=== PATIENT | female | born 1980 | race Hispanic/Latino ===

== ENCOUNTER 2024-05-28 19:05 | Emergency (ER) | payer BC ==
[~2024-05-28] VITALS: Ht 157.5 cm; Wt 71.2 kg
[2024-05-28 20:12] VITALS: PULSE 73; RESP 18
[2024-05-28] MEDS: IPRATROPIUM/ALBUTEROL SULFATE 3 ML SOLUTION IH ONE (20:12)
[2024-05-28] MEDS ORDERED: ALBU18HF7 IH (21:54)
[2024-05-28] MEDS ORDERED: BUDE10.2 IH (21:54)
[2024-05-28 22:14] VITALS: BP 121/67; PULSE 70; RESP 16; O2SAT 100
[2024-05-29] MEDS ORDERED: BUDESONIDE 0.5 MG/2 ML INH IH SCH (06:00)
== END 2024-05-28 22:15 | disposition home or self-care (01) ==
LOC: EDH 19:05
DX: J98.8 Other specified respiratory disorders (principal); F17.210 Nicotine dependence, cigarettes, uncomplicated; Z90.89 Acquired absence of other organs; Z98.890 Other specified postprocedural states
CPT/HCPCS: 71045; 94640